=== PATIENT | female | born 1940 | race African-American/Black ===

== ENCOUNTER 2024-04-29 16:56 | Inpatient (IN) | payer MEDICARE, MEDICAID ==
[~2024-04-29] VITALS: Ht 160 cm; Wt 66.7 kg
[~2024-04-29 16:56] MED LIST: AMLO5TAB4; ANAS1TAB49 PO; ASPI-1406 PO; ATOR20TA65 PO; CALC-1305 PO; CARB-32; DIVA125T31 PO; DOXYCYLINE; LEVO100T9 PO; LEVO88TA2; LOSA25TA26 PO; LOSARTAN; OMEP20CA14 PO; SIMV-345; TRIA1CAP6; [UNRECOGNIZED DRUG - CODE]
[2024-04-29] MEDS ORDERED: ONDANSETRON HCL 4MG/2ML INJ IV PRN (17:30)
[2024-04-29] MEDS ORDERED: KETOROLAC 15MG/ML VIAL IV PRN (17:30)
[2024-04-29] MEDS ORDERED: IPRATROPIUM/ALBUTEROL 0.5-3(2.5)MG/3ML NEB HHN PRN (17:30)
[2024-04-29] MEDS ORDERED: MAGNESIUM/ALUMINUM HYDROXIDE/SIMETHICONE 30ML UDC PO PRN (17:30)
[2024-04-29] MEDS ORDERED: DOCUSATE SODIUM 100MG CAPSULE PO PRN (17:30)
[2024-04-29] MEDS ORDERED: GUAIFENESIN 200MG/10ML SUGAR FREE UDC PO PRN (17:30)
[2024-04-29] MEDS ORDERED: ACETAMINOPHEN 325MG TABLET PO PRN (17:30)
[2024-04-29 17:48] VITALS: BP 146/75; PULSE 70; RESP 18; TEMP 36.2512
[2024-04-29 18:53] VITALS: BP 146/75; PULSE 70; RESP 18; TEMP 36.22512; O2SAT 96
[2024-04-29 20:00] VITALS: BP 135/69; PULSE 73; RESP 20; TEMP 36.22512; O2SAT 93
[2024-04-29] MEDS ORDERED: *PATIENT'S OWN MEDICATION STORAGE XX SCH (20:00)
[2024-04-29] MEDS: ENOXAPARIN 40MG/0.4ML SYR SUBCUT SCH (21:00)
[2024-04-29] MEDS: LOSARTAN 25 MG TABLET PO SCH (21:00)
[2024-04-29] MEDS: ATORVASTATIN CALCIUM 20MG TABLET PO SCH (21:00)
[2024-04-29] MEDS: CARBIDOPA/LEVODOPA 25/100MG TABLET PO SCH (22:00)
[2024-04-30 06:27] LABS: CARBON DIOXIDE 26 mEq/L (21-32); CHLORIDE 108 mEq/L (98-107); POTASSIUM 3.8 mEq/L (3.5-5.1); SODIUM 141 mEq/L (136-145)
[2024-04-30 06:28] LABS: CALCIUM 9.5 mg/dL (8.7-10.4)
[2024-04-30 06:33] LABS: CREATININE 0.6 mg/dL (0.6-1.0); GLUCOSE 91 mg/dL (70-105); UREA NITROGEN BLOOD 12 mg/dL (9-23)
[2024-04-30 06:35] LABS: PREALBUMIN 5.1 mg/dl (10.0-40.0)
[2024-04-30 06:38] LABS: HEMATOCRIT. 38.4 % (36.0-48.0); HEMOGLOBIN. 12.4 g/dL (12.0-16.0); MEAN CORPUSCULAR HEMOGLOBIN 28.9 pg (28.0-32.0); MEAN CORPUSCULAR HGB CONC 32.4 g/dL (31.0-37.0); MEAN CORPUSCULAR VOLUME 89.2 fL (81.0-99.0); MEAN PLATELET VOLUME 8.6 fl (7.4-10.4); PLATELET 290 x1000/uL (130-400); RED BLOOD CELL COUNT 4.31 mill/uL (4.2-5.4); RED CELL DISTRIBUTION WIDTH 15.3 % (11.6-14.6); WHITE BLOOD COUNT 5.1 x1000/uL (4.5-11.0)
[2024-04-30 06:51] LABS: DIFFERENTIAL COMMENT 1
[2024-04-30 08:00] VITALS: BP 130/70; PULSE 68; RESP 18; TEMP 36.114; O2SAT 95
[2024-04-30] MEDS: ASPIRIN 81MG TABLET PO SCH (10:42)
[2024-04-30] MEDS: LEVOTHYROXINE SODIUM 100MCG TABLET PO SCH (10:42)
[2024-04-30] MEDS: AMLODIPINE 5MG TABLET PO SCH (10:42)
[2024-04-30] MEDS: CLONIDINE 0.1MG TABLET PO PRN (16:27)
[2024-04-30 18:28] LABS: PLATELET ESTIMATE NORMAL
[2024-04-30 20:00] VITALS: BP 135/77; PULSE 67; RESP 18; TEMP 36.33624; O2SAT 96
[2024-04-30 20:50] VITALS: PULSE 59; PULSE 98; RESP 19; RESP 20
[2024-05-01 06:15] LABS: AMMONIA 34 uMol/L (<32)
[2024-05-01 06:23] LABS: HEMATOCRIT. 37.5 % (36.0-48.0); HEMOGLOBIN. 12.3 g/dL (12.0-16.0); MEAN CORPUSCULAR HEMOGLOBIN 29.4 pg (28.0-32.0); MEAN CORPUSCULAR HGB CONC 32.9 g/dL (31.0-37.0); MEAN CORPUSCULAR VOLUME 89.4 fL (81.0-99.0); MEAN PLATELET VOLUME 8.3 fl (7.4-10.4); PLATELET 304 x1000/uL (130-400); RED BLOOD CELL COUNT 4.19 mill/uL (4.2-5.4); RED CELL DISTRIBUTION WIDTH 15.4 % (11.6-14.6); WHITE BLOOD COUNT 5.2 x1000/uL (4.5-11.0)
[2024-05-01 06:28] LABS: CHLORIDE 110 mEq/L (98-107); POTASSIUM 3.6 mEq/L (3.5-5.1); SODIUM 142 mEq/L (136-145)
[2024-05-01 06:29] LABS: CALCIUM 9.6 mg/dL (8.7-10.4); CARBON DIOXIDE 26 mEq/L (21-32)
[2024-05-01 06:30] LABS: THYROID STIMULATING HORMONE 3.03 uIU/mL (0.55-4.78)
[2024-05-01 06:32] LABS: FERRITIN 74 ng/mL (10-291); FOLIC ACID (FOLATE) SERUM > 20.00 ng/mL (>5.38)
[2024-05-01 06:33] LABS: IRON 49 ug/dL (50-170); PROTEIN TOTAL 6.6 g/dL (6.0-8.3); VITAMIN B12 SERUM 503 pg/mL (211-911)
[2024-05-01 06:34] LABS: CREATININE 0.5 mg/dL (0.6-1.0); GLUCOSE 92 mg/dL (70-105); UREA NITROGEN BLOOD 10 mg/dL (9-23)
[2024-05-01 06:35] LABS: ALANINE AMINOTRANSFERASE < 7 IU/L (10-49)
[2024-05-01 06:36] LABS: ALBUMIN 3.9 g/dL (3.2-4.8); ASPARTATE AMINOTRANSFERASE 11 IU/L (<34); BILIRUBIN TOTAL 0.8 mg/dL (0.1-1.0); TOTAL IRON BINDING CAPACITY 241 ug/dl (250-425)
[2024-05-01 07:32] LABS: DIFFERENTIAL COMMENT 1
[2024-05-01 08:00] VITALS: BP 150/79; PULSE 64; RESP 20; TEMP 36.16956; O2SAT 97
[2024-05-01 14:25] LABS: PLATELET ESTIMATE NORMAL
[2024-05-01] MEDS: ACETAMINOPHEN 325MG TABLET PO PRN (14:49)
[2024-05-01] MEDS: LACTULOSE 20G/30ML UDC PO SCH (17:36)
[2024-05-01 20:00] VITALS: BP 150/79; PULSE 68; RESP 18; TEMP 36.61404; O2SAT 96
[2024-05-02 06:37] LABS: AMMONIA 40 uMol/L (<32)
[2024-05-02 08:00] VITALS: BP 141/73; PULSE 61; RESP 18; TEMP 36.3918; O2SAT 96
[2024-05-02] MEDS: ERGOCALCIFEROL 50000UNITS CAPSULE PO SCH (14:53)
[2024-05-02 20:00] VITALS: BP 160/72; PULSE 68; RESP 18; TEMP 36.114; O2SAT 96
[2024-05-03 06:26] LABS: PROTHROMBIN TIME 10.9 sec (9.6-11.0)
[2024-05-03 06:30] LABS: AMMONIA 38 uMol/L (<32)
[2024-05-03 06:35] LABS: CARBON DIOXIDE 27 mEq/L (21-32); CHLORIDE 106 mEq/L (98-107); POTASSIUM 3.7 mEq/L (3.5-5.1); SODIUM 141 mEq/L (136-145)
[2024-05-03 06:40] LABS: CREATININE 0.5 mg/dL (0.6-1.0); GLUCOSE 86 mg/dL (70-105)
[2024-05-03 06:41] LABS: TRIGLYCERIDE 93 mg/dL (0-150); UREA NITROGEN BLOOD 6 mg/dL (9-23)
[2024-05-03 06:42] LABS: ALANINE AMINOTRANSFERASE 8 IU/L (10-49); ALBUMIN 4.2 g/dL (3.2-4.8); ASPARTATE AMINOTRANSFERASE 11 IU/L (<34); LDL CHOLESTEROL 96 mg/dL (5-100)
[2024-05-03 06:43] LABS: BILIRUBIN TOTAL 0.7 mg/dL (0.1-1.0); CHOLESTEROL 152 mg/dL (<200); HDL CHOLESTEROL 35 mg/dL (>65); PROTEIN TOTAL 7.1 g/dL (6.0-8.3)
[2024-05-03 06:48] LABS: HEPATITIS B SURFACE ANTIGEN NEGATIVE (Negative)
[2024-05-03 06:50] LABS: BASOPHILS % 0.7 % (0.0-2.0); EOSINOPHILS % 1.8 % (0.0-5.0); HEMATOCRIT. 38.6 % (36.0-48.0); HEMOGLOBIN. 12.6 g/dL (12.0-16.0); LYMPHOCYTES % 28.4 % (20.0-50.0); MEAN CORPUSCULAR HGB CONC 32.6 g/dL (31.0-37.0); MEAN CORPUSCULAR VOLUME 88.9 fL (81.0-99.0); MEAN PLATELET VOLUME 8.4 fl (7.4-10.4); NEUTROPHILS % 55.1 % (40.0-76.0); PLATELET 350 x1000/uL (130-400); RED BLOOD CELL COUNT 4.34 mill/uL (4.2-5.4); WHITE BLOOD COUNT 5.2 x1000/uL (4.5-11.0)
[2024-05-03 07:09] LABS: HEPATITIS A AB IGM NEGATIVE (Negative); HEPATITIS B CORE AB IGM NEGATIVE (Negative)
[2024-05-03 07:10] LABS: HEPATITIS C AB NON REACTIVE (Neg) (Negative)
[2024-05-03 08:00] VITALS: BP 142/81; PULSE 65; RESP 18; TEMP 36.50292; O2SAT 96
[2024-05-03] MEDS: LACTULOSE 20G/30ML UDC PO SCH (08:26)
[2024-05-03 20:00] VITALS: BP 135/63; PULSE 73; RESP 19; TEMP 36.16956; O2SAT 95
[2024-05-04 06:40] LABS: EOSINOPHILS % 2.1 % (0.0-5.0); HEMATOCRIT. 37.7 % (36.0-48.0); HEMOGLOBIN. 12.7 g/dL (12.0-16.0); LYMPHOCYTES % 28.7 % (20.0-50.0); MEAN CORPUSCULAR HEMOGLOBIN 29.9 pg (28.0-32.0); MEAN CORPUSCULAR HGB CONC 33.5 g/dL (31.0-37.0); MEAN CORPUSCULAR VOLUME 89.2 fL (81.0-99.0); MEAN PLATELET VOLUME 7.9 fl (7.4-10.4); MONOCYTES % 14.5 % (2.0-8.0); NEUTROPHILS % 53.7 % (40.0-76.0); PLATELET 356 x1000/uL (130-400); RED BLOOD CELL COUNT 4.23 mill/uL (4.2-5.4); RED CELL DISTRIBUTION WIDTH 14.8 % (11.6-14.6); WHITE BLOOD COUNT 4.2 x1000/uL (4.5-11.0)
[2024-05-04 06:50] LABS: CHLORIDE 107 mEq/L (98-107); POTASSIUM 3.7 mEq/L (3.5-5.1); SODIUM 139 mEq/L (136-145)
[2024-05-04 06:51] LABS: CALCIUM 9.7 mg/dL (8.7-10.4); CARBON DIOXIDE 28 mEq/L (21-32)
[2024-05-04 06:56] LABS: CREATININE 0.6 mg/dL (0.6-1.0); GLUCOSE 97 mg/dL (70-105); UREA NITROGEN BLOOD 8 mg/dL (9-23)
[2024-05-04 06:57] LABS: ALANINE AMINOTRANSFERASE 7 IU/L (10-49); ALBUMIN 3.9 g/dL (3.2-4.8)
[2024-05-04 06:58] LABS: ASPARTATE AMINOTRANSFERASE 11 IU/L (<34); BILIRUBIN TOTAL 0.7 mg/dL (0.1-1.0)
[2024-05-04 07:01] LABS: AMMONIA 27 uMol/L (<32)
[2024-05-04 08:00] VITALS: BP 153/77; PULSE 62; RESP 18; TEMP 36.3918; O2SAT 97
[2024-05-04 20:00] VITALS: BP 120/99; PULSE 91; RESP 18; TEMP 36.114; O2SAT 95
[2024-05-05 05:52] LABS: AMMONIA 34 uMol/L (<32)
[2024-05-05 06:00] LABS: BASOPHILS % 0.9 % (0.0-2.0); EOSINOPHILS % 2.2 % (0.0-5.0); HEMATOCRIT. 35.8 % (36.0-48.0); HEMOGLOBIN. 11.8 g/dL (12.0-16.0); LYMPHOCYTES % 31.8 % (20.0-50.0); MEAN CORPUSCULAR HGB CONC 32.9 g/dL (31.0-37.0); MEAN CORPUSCULAR VOLUME 88.3 fL (81.0-99.0); MONOCYTES % 14.8 % (2.0-8.0); NEUTROPHILS % 50.3 % (40.0-76.0); PLATELET 373 x1000/uL (130-400); RED BLOOD CELL COUNT 4.05 mill/uL (4.2-5.4); RED CELL DISTRIBUTION WIDTH 15.6 % (11.6-14.6); WHITE BLOOD COUNT 4.2 x1000/uL (4.5-11.0)
[2024-05-05 06:13] LABS: CARBON DIOXIDE 27 mEq/L (21-32); CHLORIDE 107 mEq/L (98-107); POTASSIUM 3.9 mEq/L (3.5-5.1); SODIUM 139 mEq/L (136-145)
[2024-05-05 06:14] LABS: CALCIUM 9.7 mg/dL (8.7-10.4)
[2024-05-05 06:18] LABS: CREATININE 0.6 mg/dL (0.6-1.0)
[2024-05-05 06:19] LABS: GLUCOSE 93 mg/dL (70-105); UREA NITROGEN BLOOD 11 mg/dL (9-23)
[2024-05-05 08:00] VITALS: BP 124/58; PULSE 64; RESP 19; TEMP 36.9474; O2SAT 99
[2024-05-05 20:00] VITALS: BP 144/83; PULSE 87; RESP 16; TEMP 37.00296; O2SAT 95
[2024-05-06 08:00] VITALS: BP 145/63; PULSE 63; RESP 19; TEMP 37.00296; O2SAT 99
[2024-05-06 20:00] VITALS: BP 153/69; PULSE 62; RESP 18; TEMP 36.55848; O2SAT 95
[2024-05-07 08:00] VITALS: BP 134/72; PULSE 59; RESP 18; TEMP 36.114; O2SAT 97
[2024-05-07 17:11] LABS: CLARITY URINE CLEAR (CLEAR); COLOR URINE YELLOW (YELLOW); GLUCOSE URINE NEGATIVE (NEGATIVE); KETONES URINE TRACE (NEGATIVE); LEUKOCYTE ESTERASE URINE NEGATIVE (NEGATIVE); NITRITE URINE NEGATIVE (NEGATIVE); OCCULT BLOOD URINE NEGATIVE (NEGATIVE); PH URINE 6.5 (4.5-8.0); PROTEIN URINE NEGATIVE (NEGATIVE)
[2024-05-07 20:00] VITALS: BP 150/71; PULSE 61; RESP 19; TEMP 37.11408; O2SAT 96
[2024-05-08 08:00] VITALS: BP 115/51; PULSE 56; RESP 18; TEMP 36.28068; O2SAT 98
[2024-05-08 20:00] VITALS: BP 155/65; PULSE 55; RESP 18; TEMP 36.28068; O2SAT 94
[2024-05-08] MEDS: LACTULOSE 20G/30ML UDC PO PRN (21:38)
[2024-05-09 08:00] VITALS: BP 129/61; PULSE 63; RESP 19; TEMP 36.28068; O2SAT 97
[2024-05-09] MEDS: LACTULOSE 20G/30ML UDC PO SCH (12:00)
[2024-05-09 20:00] VITALS: BP 119/62; PULSE 64; RESP 17; TEMP 36.6696; O2SAT 98
[2024-05-10 08:00] VITALS: BP 143/65; PULSE 58; RESP 18; TEMP 36.114; O2SAT 96
[2024-05-10 20:00] VITALS: BP 138/61; PULSE 60; RESP 16; TEMP 36.16956; O2SAT 96
[2024-05-11 08:00] VITALS: BP 173/75; PULSE 61; RESP 18; TEMP 36.16956; O2SAT 100
[2024-05-11 20:00] VITALS: BP 146/60; PULSE 71; RESP 17; TEMP 36.3918; O2SAT 99
[2024-05-12 06:10] LABS: CHLORIDE 110 mEq/L (98-107); POTASSIUM 3.7 mEq/L (3.5-5.1); SODIUM 142 mEq/L (136-145)
[2024-05-12 06:11] LABS: CARBON DIOXIDE 27 mEq/L (21-32)
[2024-05-12 06:12] LABS: CALCIUM 9.6 mg/dL (8.7-10.4)
[2024-05-12 06:16] LABS: CREATININE 0.6 mg/dL (0.6-1.0); GLUCOSE 93 mg/dL (70-105)
[2024-05-12 06:17] LABS: UREA NITROGEN BLOOD 11 mg/dL (9-23)
[2024-05-12 06:24] LABS: BASOPHILS % 0.4 % (0.0-2.0); EOSINOPHILS % 2.8 % (0.0-5.0); HEMATOCRIT. 35.8 % (36.0-48.0); LYMPHOCYTES % 29.6 % (20.0-50.0); MEAN CORPUSCULAR HEMOGLOBIN 29.8 pg (28.0-32.0); MEAN CORPUSCULAR HGB CONC 33.4 g/dL (31.0-37.0); MEAN CORPUSCULAR VOLUME 89.2 fL (81.0-99.0); MEAN PLATELET VOLUME 7.9 fl (7.4-10.4); MONOCYTES % 12.5 % (2.0-8.0); NEUTROPHILS % 54.7 % (40.0-76.0); PLATELET 360 x1000/uL (130-400); RED BLOOD CELL COUNT 4.01 mill/uL (4.2-5.4); RED CELL DISTRIBUTION WIDTH 15.3 % (11.6-14.6); WHITE BLOOD COUNT 4.3 x1000/uL (4.5-11.0)
[2024-05-12 08:00] VITALS: BP 138/63; PULSE 65; RESP 20; TEMP 37.61412; O2SAT 100
[2024-05-12 12:47] VITALS: BP 138/63; PULSE 65; TEMP 99.7
[2024-05-12 14:00] VITALS: BP 149/60; PULSE 70; RESP 17; TEMP 37.00296; O2SAT 100
== END 2024-05-12 15:40 | disposition home health service (06) | DRG 563 ==
PROVIDERS: ADMIT Physical Medicine & Rehabilitation Spinal Cord Injury Medicine; ATTEND Internal Medicine
DX: S82.51XA Displaced fracture of medial malleolus of right tibia, initial encounter for closed fracture (principal); E72.20 Disorder of urea cycle metabolism, unspecified; F02.83 Dementia in other diseases classified elsewhere, unspecified severity, with mood disturbance; I69.351 Hemiplegia and hemiparesis following cerebral infarction affecting right dominant side; R26.9 Unspecified abnormalities of gait and mobility; I10 Essential (primary) hypertension; E78.5 Hyperlipidemia, unspecified; S82.61XA Displaced fracture of lateral malleolus of right fibula, initial encounter for closed fracture; E89.0 Postprocedural hypothyroidism; R29.810 Facial weakness; I69.322 Dysarthria following cerebral infarction; I69.311 Memory deficit following cerebral infarction; G20.A1 Parkinson's disease without dyskinesia, without mention of fluctuations; R33.9 Retention of urine, unspecified; E55.9 Vitamin D deficiency, unspecified; W18.39XA Other fall on same level, initial encounter; R53.81 Other malaise; I69.320 Aphasia following cerebral infarction; Z82.49 Family history of ischemic heart disease and other diseases of the circulatory system; Z85.3 Personal history of malignant neoplasm of breast; Z90.12 Acquired absence of left breast and nipple; Z91.81 History of falling; Y93.89 Activity, other specified; Y92.89 Other specified places as the place of occurrence of the external cause; Y99.8 Other external cause status; Z91.041 Radiographic dye allergy status; Z79.82 Long term (current) use of aspirin
CPT/HCPCS: 36415; 70551; 73521; 76700; 80048; 80053; 80061; 81003; 82140; 82306; 82607; 82728; 82746; 83036; 83540; 83550; 84134; 84443; 85025; 86705; 86709; 87340; 92523; 92610; 93880; 97110; 97116; 97162; 97166; 97530; 97535; 97542; J1650